=== PATIENT | female | born 1980 | race Two or more races ===

== ENCOUNTER 2020-03-17 10:52 | Outpatient (CLI) | payer OTHER | END 2020-03-17 11:05 | disposition home or self-care (01) | LOC: RX STUDY 10:52 | PROVIDERS: ATTEND Obstetrics & Gynecology Reproductive Endocrinology | DX: N73.6 Female pelvic peritoneal adhesions (postinfective) (principal); N93.0 Postcoital and contact bleeding ==

== ENCOUNTER 2020-06-25 05:34 | Day surgery (SDC) | payer OTHER ==
[~2020-06-25 05:34] MED LIST: MEGESTROL ACETA40 MG PO; TOPROL XL50 M1 PO; ZESTRIL10 M1 PO
== END 2020-06-25 12:00 | disposition home or self-care (01) ==
LOC: CIR.AMB 05:34
PROVIDERS: ATTEND Specialist
DX: N85.01 Benign endometrial hyperplasia (principal)

== ENCOUNTER 2021-02-18 08:09 | Inpatient (IN) | payer OTHER ==
[~2021-02-18] VITALS: Ht 160 cm; Wt 99.8 kg
[2021-02-19] MEDS ORDERED: GABAPENTIN100 M2 (08:42)
== END 2021-02-20 13:54 | disposition home or self-care (01) | DRG 743 ==
LOC: CIR.AMB 08:09 → OB/GYN 11:53 → O/R 11:53 → OB/GYN 13:09 → CIR.AMB 14:00 → OB/GYN 15:46
PROVIDERS: ADMIT Specialist; ATTEND Specialist
PROC: 0UT70ZZ Resection of Bilateral Fallopian Tubes, Open Approach (ICD-10-PCS; 2021-02-18)
PROC: 07BC0ZZ Excision of Pelvis Lymphatic, Open Approach (ICD-10-PCS; 2021-02-18)
PROC: 0UT90ZZ Resection of Uterus, Open Approach (ICD-10-PCS; principal; 2021-02-18 05:30)
DX: N80.0 Endometriosis of uterus (principal); N72 Inflammatory disease of cervix uteri; N83.8 Other noninflammatory disorders of ovary, fallopian tube and broad ligament; N92.1 Excessive and frequent menstruation with irregular cycle; I10 Essential (primary) hypertension